=== PATIENT | male | born 1975 | race Caucasian/White ===

== ENCOUNTER → 2017-03-31 | Outpatient (CLI) | payer BC | LOC: HEART 5 08:00 | DX: I10 Essential (primary) hypertension (principal) | CPT/HCPCS: 93306 ==

== ENCOUNTER → 2021-09-21 | Outpatient (CLI) | payer OTHER | LOC: MRI 08:42 | DX: M79.602 Pain in left arm (principal) | CPT/HCPCS: 73218; 73221 ==

== ENCOUNTER 2022-02-14 21:59 | Emergency (ER) | payer BC ==
[2022-02-14 22:30] LABS: HEMOGLOBIN 15.9 gm/dl (14.0-17.5); RED BLOOD COUNT 5.07 M/UL (4.20-5.50); WHITE BLOOD COUNT 8.3 K/UL (4.5-11.0)
[2022-02-14 22:56] LABS: BUN/CREATININE RATIO 15 (0-10)
== END 2022-02-15 03:40 | disposition home or self-care (01) ==
LOC: ER1 21:59
PROVIDERS: Student in an Organized Health Care Education/Training Program
DX: R07.89 Other chest pain (principal); R00.2 Palpitations
CPT/HCPCS: 71045; 80053; 82550; 82553; 84484; 85025; 93005; 99285